=== PATIENT | male | born 1975 | race Caucasian/White ===

== ENCOUNTER → 2018-01-18 15:42 | Outpatient (CLI) | payer OTHER, SELFPAY ==
--- NOTE | 2018-01-18 15:43 | DI.RAD.S_ITS ---
PROCEDURE: XR KNEE LT 3V INDICATIONS: left patellar pain after trauma TECHNIQUE: 3 views of the knee were acquired. COMPARISON: None. FINDINGS: Bones: No fractures or dislocations. No suspicious bony lesions. Soft tissues: No joint effusion. No suspicious soft tissue calcifications. IMPRESSION: No fracture found, no joint effusion seen. Dictated by: Alfredo Koroma M.D. on 01/18/2018 at 16:16 Approved by: Alfredo Koroma M.D. on 01/18/2018 at 16:17
== END ==
PROVIDERS: PCP Family Medicine; Visit Provider Family Medicine
DX: M25.562 Pain in left knee (principal)
CPT/HCPCS: 73562

== ENCOUNTER → 2018-02-09 20:07 | Outpatient (CLI) | payer OTHER, SELFPAY ==
--- NOTE | 2018-02-09 20:09 | DI.MRI.S_ITS ---
PROCEDURE: MR KNEE RT WO CON INDICATIONS: INSTABILITY OF RT KNEE JOINT TECHNIQUE: Noncontrast sagittal PD fast spin echo and T2 fast spin echo with fat saturation, sagittal 3-D FLASH with fat saturation; coronal T1 spin echo and PD fast spin echo with fat saturation, and axial PD fast spin echo with fat saturation through the knee. COMPARISON: None. FINDINGS: Image quality: Excellent. Menisci: There is amorphous high signal intensity within the medial meniscal body and posterior horn, as well as a lateral meniscal body, without evidence of articular surface extension, indicating mucoid degeneration. No evidence of meniscal tear. Cruciate ligaments: The anterior and posterior cruciate ligaments appear intact. Medial structures: The medial collateral ligament appears intact. Visualized portions of the pes anserinus tendons appear normal. No abnormal bursal fluid. Lateral structures: The lateral collateral ligament, long and short heads of the biceps femoris tendon appear intact. The popliteus tendon appears normal. Iliotibial band appears normal. Anterior structures: The quadriceps and patellar tendons appear intact. Patellar alignment is normal. No femoral trochlear dysplasia or ventral trochlear prominence. No edema in the infrapatellar fat pad. Bones and cartilage: No displaced fracture. There is mild tricompartmental periarticular osteophyte formation. Moderate ill-defined T2 signal elevation within the medial tibial plateau is present, consistent with degenerative marrow edema versus contusion, if there is history of recent trauma. Mild diffuse articular cartilage loss overlies the weightbearing aspects of the medial femoral condyle and medial tibial plateau. Articular cartilage fibrillation overlies the mid and posterior weightbearing aspects of the lateral tibial plateau. Joint space: There is physiologic knee joint fluid. There is a small Pierre's cyst. Normal appearing synovial plicae are incidentally noted. IMPRESSION: 1. No internal derangement. 2. Mucoid degeneration of the medial and lateral menisci without evidence of tearing. 3. Medial and lateral compartment articular cartilage loss. 4. Marrow edema within the medial tibial plateau, which is consistent with degenerative marrow edema, or contusion, if there is a history of recent injury. 5. Small Pierre's cyst. Dictated by: Prisca Welch M.D. on 02/10/2018 at 9:08 Approved by: Prisca Welch M.D. on 02/10/2018 at 9:12
== END ==
PROVIDERS: PCP Family Medicine
DX: M25.561 Pain in right knee (principal); M71.21 Synovial cyst of popliteal space [Baker], right knee; M23.321 Other meniscus derangements, posterior horn of medial meniscus, right knee; M23.361 Other meniscus derangements, other lateral meniscus, right knee
CPT/HCPCS: 73721

== ENCOUNTER → 2018-02-16 19:11 | Outpatient (CLI) | payer OTHER, SELFPAY ==
--- NOTE | 2018-02-16 19:13 | DI.MRI.S_ITS ---
PROCEDURE: MR KNEE LT WO CON INDICATIONS: unstable LEFT knee due to injury TECHNIQUE: Noncontrast sagittal PD fast spin echo and T2 fast spin echo with fat saturation, sagittal 3-D FLASH with fat saturation; coronal T1 spin echo and PD fast spin echo with fat saturation, and axial PD fast spin echo with fat saturation through the knee. COMPARISON: None. FINDINGS: Image quality: Excellent. Menisci: The medial and lateral menisci demonstrate normal morphology and internal signal. Small oblique tear of the posterior root of the lateral meniscus (series 10, image 22; series 9, image 18). Cruciate ligaments: The anterior and posterior cruciate ligaments appear intact. Medial structures: The medial collateral ligament appears intact. The posterior oblique ligament, semimembranosus tendon insertions, oblique popliteal ligament, and meniscocapsular junction appear intact. Visualized portions of the pes anserinus tendons appear normal. No abnormal bursal fluid. Lateral structures: The lateral collateral ligament, long and short heads of the biceps femoris tendon appear intact. The popliteus tendon appears normal; the popliteofibular ligament appears intact. The posterosuperior and anteroinferior popliteomeniscal fascicles appear intact. The arcuate and fabellofibular ligaments appear intact, on either side of the lateral inferior geniculate artery. Iliotibial band appears normal. Anterior structures: The quadriceps and patellar tendons appear intact. Patellar alignment is normal. No femoral trochlear dysplasia or ventral trochlear prominence. No edema in the infrapatellar fat pad. Bones and cartilage: No bone marrow contusions or fractures. The cartilage of the medial lateral femorotibial compartments, as well as the patellofemoral compartment, appears normal in thickness. There is mild fissuring the patellar articular cartilage at the apex (series 7, image 10. Joint space: There is physiologic knee joint fluid. Moderate-sized popliteal cyst. Normal appearing synovial plicae are incidentally noted. IMPRESSION: 1. Small oblique tear of the posterior root of the lateral meniscus. 2. Mild fissuring of the patellar articular cartilage at the apex. 3. Moderate-sized popliteal cyst. Dictated by: Jenniffer Maurice MD, PhD on 02/16/2018 at 22:15 Approved by: Jenniffer Maurice MD, PhD on 02/16/2018 at 22:59
== END ==
PROVIDERS: PCP Family Medicine; Visit Provider Family Medicine
DX: M25.562 Pain in left knee (principal); M71.22 Synovial cyst of popliteal space [Baker], left knee; S83.282A Other tear of lateral meniscus, current injury, left knee, initial encounter
CPT/HCPCS: 73721

== ENCOUNTER → 2019-07-22 10:36 | Outpatient (CLI) | payer OTHER, SELFPAY ==
[2019-07-22 11:11] LABS: Influenza A - CEPHEID Flu A POSITIVE (NEGATIVE); Influenza B - CEPHEID Flu B NEGATIVE (NEGATIVE)
== END ==
PROVIDERS: PCP Student in an Organized Health Care Education/Training Program; Visit Provider Student in an Organized Health Care Education/Training Program
DX: R68.89 Other general symptoms and signs (principal)
CPT/HCPCS: 87502

== ENCOUNTER → 2020-08-08 16:54 | Outpatient (CLI) | payer OTHER, SELFPAY ==
[2020-08-08 17:10] LABS: Hematocrit 43.1 % (41-53); Hemoglobin 14.8 g/dL (13.5-17.5); Mean Corpuscular HGB Conc 34.4 % (30-36); Mean Corpuscular Hemoglobin 31.6 PG (26-34); Mean Corpuscular Volume 91.8 fL (80-100); Platelet Count 263 X10^3/uL (150-400); Red Blood Cell Count 4.69 X10^6/uL (4.5-5.9); Red Cell Distribution Width 12.5 % (11.6-14.8); White Blood Cell Count 8.5 X10^3/uL (4.5-11.0)
[2020-08-08 17:37] LABS: Erythrocyte Sedimentation Rate 5 MM/HR (0-15)
[2020-08-08 17:52] LABS: BUN Creatinine Ratio 25.3 (6-22); Blood Urea Nitrogen 22 mg/dL (9-20); Calcium 9.8 mg/dL (8.4-10.2); Carbon Dioxide 28 mmol/L (22-32); Chloride 102 mmol/L (98-107); Cholesterol 205 mg/dL (140-199); Estimated Glomerular Filt Rate > 60.0 mL/min (>60); Glucose 100 mg/dL (70-100); HDL Cholesterol 96 mg/dL (40-60); HEMOLYSIS < 15 (0-50); LDL Cholesterol Calculated 97 mg/dL (<100); Potassium 3.7 mmol/L (3.4-5.1); Sodium 139 mmol/L (137-145); Triglycerides 60 mg/dL (35-150)
[2020-08-08 18:11] LABS: C-Reactive Protein Quant < 0.5 mg/dL (<1.0)
[2020-08-08 18:17] LABS: TSH w/ Reflex to FT4 0.33 uIU/mL (0.47-4.68)
[2020-08-08 18:35] LABS: Vitamin B12 644 pg/mL (239-931)
[2020-08-08 19:10] LABS: Free T4, Direct Thyroxine 0.91 ng/dL (0.78-2.19)
== END ==
PROVIDERS: PCP Student in an Organized Health Care Education/Training Program; Referring Provider Student in an Organized Health Care Education/Training Program; Visit Provider Student in an Organized Health Care Education/Training Program
DX: G62.9 Polyneuropathy, unspecified (principal); Z79.1 Long term (current) use of non-steroidal anti-inflammatories (NSAID); G43.109 Migraine with aura, not intractable, without status migrainosus; Z13.220 Encounter for screening for lipoid disorders
CPT/HCPCS: 36415; 80048; 80061; 82607; 84439; 84443; 85027; 85651; 86140

== ENCOUNTER 2021-02-06 10:32 | Emergency (ER) | payer SELFPAY ==
[2021-02-06 10:36] VITALS: BP 139/85; PULSE 83; RESP 16; TEMP 37; O2SAT 98; BMI 28.7
--- NOTE | 2021-02-06 10:41 | DI.RAD.S_ITS ---
PROCEDURE: XR ANKLE RT MIN 3V INDICATIONS: tripped TECHNIQUE: 3 views of the ankle were acquired. COMPARISON: [facility], , XR ANKLE 3V RIGHT, 11/14/2005, 9:34. [facility], , ANKLE 3 VIEWS LEFT, 09/25/2016, 19:16. [facility], , ANKLE 3 VIEWS LEFT, 11/21/2013, 9:53. FINDINGS: Bones: Oblique fracture of the distal fibula above the syndesmosis. Irregularity and lucency at the medial malleolus. Lucency at the posterior malleolus. Mild displacement of the fracture fragments. Ankle mortise is normally aligned. No suspicious bony lesions. Soft tissues: Swelling at the malleoli. No tibiotalar joint effusion. Achilles tendon appears normal. IMPRESSION: Suspect trimalleolar fracture with mild displacement. Recommend CT of the ankle for further characterization. Dictated by: Nael Paulson M.D. on 02/06/2021 at 10:12 Approved by: Nael Paulson M.D. on 02/06/2021 at 10:19
--- NOTE | 2021-02-06 11:17 | ED.LOWEXIN ---
HPI - Extremity Injury (Lower) General Chief Complaint: Extremity Injury, Lower Stated Complaint: RT ANKLE PAIN POST FALL Time Seen by Provider: 02/06/21 11:10 Source: patient Mode of arrival: Ambulatory History of Present Illness HPI Narrative: Patient is a 45-year-old male here for evaluation of a right ankle injury. He states that approximately 0300 hours in the morning he tripped over his dogs blanket. He did twist his ankle. He states that he heard a pop since then. He was wearing boots at the time. He was able to take the boot off but has kept his sock on since then. Now has significant discomfort and swelling to his right ankle. No other injuries from the event. Has not tried anything for the symptoms prior to arrival. Related Data Previous Rx's Medication Instructions Recorded gabapentin 300 mg capsule 300 mg PO BEDTIME #90 cap 05/09/20 celecoxib 200 mg capsule 200 mg PO BID #60 cap 07/06/20 sumatriptan succinate 100 mg 100 mg PO .COMPLEX PRN #20 tab 07/09/20 tablet (Imitrex) tadalafil 2.5 mg tablet (Cialis) 2.5 mg PO DAILY #90 tab 01/18/21 dextroamphetamine-amphetamine 30 30 mg PO DAILY #30 tab 02/05/21 mg tablet (Adderall) dextroamphetamine-amphetamine ER 30 mg PO QAM #30 cap 02/05/21 30 mg 24hr capsule,extend release (Adderall XR) hydrocodone 7.5 mg-acetaminophen 1 tab PO BID PRN #60 tab 02/05/21 325 mg tablet hydrocodone 5 mg-acetaminophen 325 1 tab PO Q4-6H PRN #10 tab 02/06/21 mg tablet Allergies Allergy/AdvReac Type Severity Reaction Status Date / Time Penicillins Allergy Severe BREATHING Verified 01/02/21 13:13 DIFFICULTY Anesthetics - Amide Type - Allergy Unknown Verified 01/02/21 13:13 Select A [Anesthetics - Amide Type] Anesthetics - Suzette Type- Allergy Unknown Verified 01/02/21 13:13 Parabens [Anesthetics - Suzette Type] erythromycin base Allergy Unknown Verified 01/02/21 13:13 [From Erythrocin] Sulfa (Sulfonamide Allergy Unknown Verified 01/02/21 13:13 Antibiotics) tetracycline Allergy Unknown Verified 01/02/21 13:13 Review of Systems Constitutional Constitutional: Reports system reviewed and no additional complaints, except as documented Musculoskeletal Musculoskeletal: Reports system reviewed and no additional complaints, except as documented and Reports as per HPI Integumentary/Breasts Comments: Bruising and swelling to the right ankle Neurologic Neurologic: Reports system reviewed and no additional complaints, except as documented Hematologic/Lymphatic On Anticoagulants: No Patient History Medical History Acute appendicitis Ankle pain (2006) Anxiety (09/18/15) Bilateral neuropathy of upper extremities (Unknown) Chronic pain of left ankle (06/20/16) Chronic right shoulder pain (12/02/16) Degenerative arthritis of shoulder region Depression (2013) Diverticular disease (2012) Foraminal stenosis of cervical region (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) Fractures (1999) Incomplete tear of right rotator cuff (06/16/17) Instability of right knee joint Ischial bursitis of right side (06/20/16) Migraine with aura and without status migrainosus, not intractable (06/16/17) Migraines (2013) Paresthesia of upper extremity (09/18/15) Partial tear of right rotator cuff (Unknown) Substance abuse (2005) Uncomplicated opioid dependence (04/07/17) Vertigo (~2011) Surgical History (Updated 12/31/18 @ 08:24 by King Quintana MD) Status post appendectomy Status post knee surgery Family History Mother Age: 70 Diabetes mellitus Hypertension Sister Age: 49 History of breast cancer Social History Smoking Status: Former smoker Smoking Status: Former smoker Exam Initial Vital Signs Initial Vital Signs: Vital Signs Temperature 98.6 F 02/06/21 10:36 Pulse Rate 83 02/06/21 10:36 Respiratory Rate 16 02/06/21 10:36 Blood Pressure 139/85 02/06/21 10:36 Pulse Oximetry 98 02/06/21 10:36 Const General: cooperative and comfortable HENMT Head: normal to inspection and normocephalic Cardio Pulses: dorsalis pedis present on the right Skin Other: Bruising throughout the right ankle, no breaks in the skin, Neuro Sensory Exam: no sensory deficits noted Extrem Other: No proximal fibula tenderness. No knee tenderness. Does have swelling and discomfort around the right ankle with limited range of motion. His right foot is also swollen. Procedures Orthopedic Splinting/Casting Injury #1: Side: right Lower Extremity Injury Location: ankle Lower Extremity Immobilizer: posterior splint and stirrup splint Other Orthopedic Equipment: crutches Post splinting neuro exam: intact Post splinting vascular exam: intact Placed by: Nursing Course Orders Ordered: ED Orders 02/06/21 10:41 XR ankle RT min 3V Stat Discontinued Medications Hydromorphone HCl (Hydromorphone 1 Mg Inj) 1 mg IV NOW ONE Stop: 02/06/21 11:18 Last Admin: 02/06/21 12:15 Dose: Not Given Documented by: PASCUAL Hydromorphone HCl (Hydromorphone 1 Mg Inj) 1 mg IM NOW ONE Stop: 02/06/21 11:20 Last Admin: 02/06/21 11:23 Dose: 1 mg Documented by: ALESSIO Vital Signs Vital signs: Vital Signs - 8 hr 02/06/21 10:36 Temperature 98.6 F Pulse Rate 83 Respiratory Rate 16 Blood Pressure 139/85 Pulse Oximetry 98 MDM - Extremity Injury (Lower) Imaging Data Extremity x-ray #1: Radiologist's Impression: [address] [address] XRay Report Signed Patient: Hector Gu MR#: [id number] : 1975 Acct:[id number] Age/Sex: 45 / M Date of Service: 02/06/21 Loc: ED Accession Number: [id number] ?? Procedure: XR ankle RT min 3V Ordering Provider: Matthew Thakur D.O. PROCEDURE:? XR ANKLE RT MIN 3V ? INDICATIONS:? tripped ? TECHNIQUE:? 3 views of the ankle were acquired.? ? COMPARISON:? [facility], , XR ANKLE 3V RIGHT, 11/14/2005, 9:34.? [facility], , ANKLE 3 VIEWS LEFT, 09/25/2016, 19:16.? [facility], , ANKLE 3 VIEWS LEFT, 11/21/2013, 9:53. ? FINDINGS:? ? Bones:? Oblique fracture of the distal fibula above the syndesmosis.? Irregularity and lucency at the medial malleolus.? Lucency at the posterior malleolus.? Mild displacement of the fracture fragments.? Ankle mortise is normally aligned.? No suspicious bony lesions.? ? Soft tissues:? Swelling at the malleoli. No tibiotalar joint effusion.? Achilles tendon appears normal.? ? ? IMPRESSION:? Suspect trimalleolar fracture with mild displacement. ? Recommend CT of the ankle for further characterization. ? ? ? Dictated by: Nael Paulson M.D. on 02/06/2021 at 10:12 ? ? Approved by: Nael Paulson M.D. on 02/06/2021 at 10:19?? MDM Narrative Medical decision making narrative: Patient is neurovascularly intact. X-rays concerning for trimalleolar fracture. Is minimally displaced. Splint was placed here in the emergency department. He is having quite a bit of swelling. He was given follow-up instructions with orthopedics and care instructions. He expressed understanding and agreement. Discharge Plan Departure Patient Disposition: Home Clinical Impression: Ankle fracture, right Instructions: How to Use Crutches, DI for Ankle Fracture, How to Take Care of Your Splint Activity Restrictions/Additional Instructions: Your x-ray today does show a right-sided ankle fracture. This most likely is going to require surgery. I recommend you contact the orthopedic group at the number provided below. The splint that was placed today does need to be treated like a cast. You need to keep it on and keep it clean and keep it dry. Contact your primary doctor for a follow-up. Prescriptions: New hydrocodone-acetaminophen 5-325 mg tablet 1 tab PO Q4-6H PRN (Reason: pain) Qty: 10 RF: 0 No Action celecoxib 200 mg capsule 200 mg PO BID Qty: 60 RF: 4 sumatriptan succinate [Imitrex] 100 mg tablet 100 mg PO .COMPLEX PRN (Reason: migraine headache, MRx1 in 2 hours as needed.) Qty: 20 RF: 3 tadalafil [Cialis] 2.5 mg tablet 2.5 mg PO DAILY Qty: 90 RF: 0 dextroamphetamine-amphetamine [Adderall] 30 mg tablet 30 mg PO DAILY Qty: 30 RF: 0 dextroamphetamine-amphetamine [Adderall XR] 30 mg capsule,extended release 24hr 30 mg PO QAM Qty: 30 RF: 0 hydrocodone-acetaminophen 7.5-325 mg tablet 1 tab PO BID PRN (Reason: pain) Qty: 60 RF: 0 gabapentin 300 mg capsule 300 mg PO BEDTIME Qty: 90 RF: 3 Referrals: King Quintana MD [Primary Care Provider] -
[2021-02-06] MEDS: HYDROMORPHONE 1 MG INJ IM (11:23)
[2021-02-06 12:33] VITALS: BP 138/89; PULSE 83; RESP 16; O2SAT 99
== END 2021-02-06 12:33 | disposition home or self-care (01) ==
PROVIDERS: Emergency Provider Emergency Medicine; PCP Student in an Organized Health Care Education/Training Program
DX: S82.851A Displaced trimalleolar fracture of right lower leg, initial encounter for closed fracture (principal); W01.0XXA Fall on same level from slipping, tripping and stumbling without subsequent striking against object, initial encounter
CPT/HCPCS: 29515; 73610; 96372; 99283; 99284; J1170

== ENCOUNTER 2021-02-12 10:34 | Emergency (ER) | payer SELFPAY ==
[2021-02-12 10:45] VITALS: BP 141/75; PULSE 89; RESP 15; TEMP 36.7; O2SAT 97; BMI 28.1
--- NOTE | 2021-02-12 10:47 | ED.GENADULT ---
HPI - General Adult General Chief complaint: Extremity Injury, Lower Stated complaint: RT ANKLE PAIN Time Seen by Provider: 02/12/21 10:40 Source: patient Mode of arrival: Wheelchair History of Present Illness HPI narrative: Patient is a 45-year-old male. I evaluated him here in the emergency department a couple days ago for a right ankle fracture. He was placed in a splint. Was given pain medication. Was given follow-up with Orthopedics. States that he went home. Started to have some extreme discomfort in his ankle. Went to an outside facility. The splint that was placed here in this department was removed. Apparently was found that he had fracture blisters. Was given antibiotics. Was given a prescription for antibiotics but has not picked up that prescription. Had a follow-up with Orthopedics today that was already scheduled. Was discovered that he had very foul smelling discharge and redness in continued pain. Was sent to the emergency department for labs and further evaluation. Related Data Previous Rx's Medication Instructions Recorded gabapentin 300 mg capsule 300 mg PO BEDTIME #90 cap 05/09/20 celecoxib 200 mg capsule 200 mg PO BID #60 cap 07/06/20 sumatriptan succinate 100 mg 100 mg PO .COMPLEX PRN #20 tab 07/09/20 tablet (Imitrex) tadalafil 2.5 mg tablet (Cialis) 2.5 mg PO DAILY #90 tab 01/18/21 dextroamphetamine-amphetamine 30 30 mg PO DAILY #30 tab 02/05/21 mg tablet (Adderall) dextroamphetamine-amphetamine ER 30 mg PO QAM #30 cap 02/05/21 30 mg 24hr capsule,extend release (Adderall XR) hydrocodone 7.5 mg-acetaminophen 1 tab PO BID PRN #60 tab 02/05/21 325 mg tablet hydrocodone 5 mg-acetaminophen 325 1 tab PO Q4-6H PRN #10 tab 02/06/21 mg tablet cephalexin 500 mg capsule 500 mg PO QID 7 Days #28 cap 02/12/21 Allergies Allergy/AdvReac Type Severity Reaction Status Date / Time Penicillins Allergy Severe BREATHING Verified 02/12/21 10:45 DIFFICULTY Anesthetics - Amide Type - Allergy Unknown Verified 02/12/21 10:45 Select A [Anesthetics - Amide Type] Anesthetics - Suzette Type- Allergy Unknown Verified 02/12/21 10:45 Parabens [Anesthetics - Suzette Type] erythromycin base Allergy Unknown Verified 02/12/21 10:45 [From Erythrocin] Sulfa (Sulfonamide Allergy Unknown Verified 02/12/21 10:45 Antibiotics) tetracycline Allergy Unknown Verified 02/12/21 10:45 Review of Systems Constitutional Constitutional: Denies fever(s) Cardiovascular Cardiovascular: Reports system reviewed and no additional complaints, except as documented Respiratory Respiratory: Reports system reviewed and no additional complaints, except as documented Musculoskeletal Musculoskeletal: Reports system reviewed and no additional complaints, except as documented and Reports as per HPI Integumentary/Breasts Skin/Breast: Reports system reviewed and no additional complaints, except as documented Neurologic Neurologic: Reports system reviewed and no additional complaints, except as documented Hematologic/Lymphatic On Anticoagulants: No Patient History Medical History Acute appendicitis Ankle pain (2006) Anxiety (09/18/15) Bilateral neuropathy of upper extremities (Unknown) Chronic pain of left ankle (06/20/16) Chronic right shoulder pain (12/02/16) Degenerative arthritis of shoulder region Depression (2013) Diverticular disease (2012) Foraminal stenosis of cervical region (08/21/17) Fractures (1999) Incomplete tear of right rotator cuff (06/16/17) Instability of right knee joint Ischial bursitis of right side (06/20/16) Migraine with aura and without status migrainosus, not intractable (06/16/17) Migraines (2013) Paresthesia of upper extremity (09/18/15) Partial tear of right rotator cuff (Unknown) Substance abuse (2005) Uncomplicated opioid dependence (04/07/17) Vertigo (~2011) Surgical History (Updated 12/31/18 @ 08:24 by King Quintana MD) Status post appendectomy Status post knee surgery Family History Mother Age: 70 Diabetes mellitus Hypertension Sister Age: 49 History of breast cancer Social History Smoking Status: Former smoker Smoking Status: Former smoker Exam Initial Vital Signs Initial Vital Signs: Vital Signs Temperature 98.0 F 02/12/21 10:45 Pulse Rate 89 02/12/21 10:45 Respiratory Rate 15 02/12/21 10:45 Blood Pressure 141/75 H 02/12/21 10:45 Pulse Oximetry 97 02/12/21 10:45 Const General: cooperative and comfortable HENMT Head: normal to inspection and normocephalic Resp Effort & Inspection: normal respiratory effort Cardio Rate: regular rate Skin Other: Patient with large fracture blisters on both the medial and lateral aspect of his right foot. Foul smelling. Red and beefy appearing. Neuro General: patient alert and patient awake Extrem Other: Patient's right foot is swollen. Fracture blisters apparent. Ecchymosis around the area. Psych Appearance: grossly normal and well kempt Procedures Orthopedic Splinting/Casting Injury #1: Side: right Lower Extremity Injury Location: ankle Lower Extremity Immobilizer: posterior splint and stirrup splint Other Orthopedic Equipment: crutches Post splinting neuro exam: intact Post splinting vascular exam: intact Placed by: Provider Course Orders Ordered: Discontinued Medications Hydrocodone Bitart/Acetaminophen (Hydrocodone/Acet 5/325 Tablet) 1 tab PO NOW ONE Stop: 02/12/21 13:21 Last Admin: 02/12/21 13:33 Dose: 1 tab Documented by: SIDNEY Hydromorphone HCl (Hydromorphone 1 Mg Inj) 1 mg IV NOW ONE Stop: 02/12/21 12:10 Last Admin: 02/12/21 12:30 Dose: 1 mg Documented by: SIDNEY Vital Signs Vital signs: Vital Signs - 8 hr 02/12/21 10:45 02/12/21 14:00 Temperature 98.0 F Pulse Rate 89 74 Respiratory Rate 15 18 Blood Pressure 141/75 H 134/88 Pulse Oximetry 97 100 Medical Decision Making Medical Records Medical records reviewed: Yes I reviewed the patient's medical records. Lab Data Lab results reviewed: Yes I reviewed the patient's lab results. Result diagrams: 02/12/21 10:52 02/12/21 10:52 Labs: Lab Results 02/12/21 02/12/21 02/12/21 Range/Units 10:52 10:52 10:52 WBC 6.8 (4.5-11.0) X10^3/uL RBC 3.97 L (4.5-5.9) X10^6/uL Hgb 12.2 L (13.5-17.5) g/dL Hct 35.9 L (41-53) % MCV 90.6 (80-100) fL MCH 30.7 (26-34) PG MCHC 33.8 (30-36) % RDW 12.5 (11.6-14.8) % Plt Count 267 (150-400) X10^3/uL Neut % (Auto) 62.8 (50-75) % Lymph % (Auto) 22.4 L (25-40) % [place] % (Auto) 9.9 (3-14) % Eos % (Auto) 4.3 H (2-4) % Baso % (Auto) 0.6 (0-2) % Neut # (Auto) 4300 (2455-1914) /uL Lymph # (Auto) 1500 (8909-9393) /uL [place] # (Auto) 700 (0-900) /uL Eos # (Auto) 300 (0-450) /uL Baso # (Auto) 0 (0-100) /uL ESR 38 H (0-15) MM/HR Sodium 141 (137-145) mmol/L Potassium 3.7 (3.4-5.1) mmol/L Chloride 107 (98-107) mmol/L Carbon Dioxide 30 (22-32) mmol/L BUN 18 (9-20) mg/dL Creatinine 0.62 L (0.66-1.25) mg/dL Estimated GFR > 60.0 (>60) mL/min BUN/Creatinine Ratio 29.0 H (6-22) Glucose 130 H (70-100) mg/dL Lactate 1.2 (0.7-2.1) mmol/L Calcium 9.1 (8.4-10.2) mg/dL C-Reactive Protein 5.0 H (<1.0) mg/dL Imaging Data Extremity x-ray #1: Radiologist's Impression: [address] [id number] ReportSigned Patient: Hector Gu LMR#: [id number]: [id number]:[id number]/Sex: 45 / MDate of Service: 02/12/21Loc: EDAccession Number: [id number] Procedure: XR ankle RT min 3V Ordering Provider: Matthew Thakur D.O. PROCEDURE: XR ANKLE RT MIN 3V INDICATIONS: known fx requested by ortho TECHNIQUE: 3 views of the ankle were acquired. COMPARISON: [facility], CR, XR ANKLE RT MIN 3V, 02/06/2021, 10:43. FINDINGS: Bones: There is a comminuted fracture seen involving the medial malleolus, with adjacent periosteal reaction. There is a mildly displaced distal fibular fracture seen at and below the level of the syndesmosis. The syndesmosis appears mildly widened. There is widening of the ankle mortise. The talar dome demonstrates no val abnormality. There is a mildly displaced posterior malleolar fracture also seen. Incidental note is made of an accessory ossicle, an os trigonum. Age-appropriate bony degenerative changes are seen. Soft tissues: Generalized soft tissue swelling is seen. IMPRESSION: Trimalleolar fracture again seen. If clinically appropriate, a dedicated ankle CT could be considered for further evaluation. Dictated by: Jeffrey Degroot M.D. on 02/12/2021 at 10:07 Approved by: Jeffrey Degroot M.D. on 02/12/2021 at 10:09 [facility] Narrative Medical decision making narrative: Patient is neurologically intact. Cultures were obtained today. He does have significant fracture blisters and swelling. Did ESR and CRP. I did discuss the case with Dr. mi who requested the patient come to the emergency department. He was placed in a large bulky [place] splint. He was given another pair of crutches. Was given a prescription for antibiotics since he has not picked up his antibiotics from the prior pharmacy does not know what he was given. He was instructed to contact the Orthopedic Department for a follow-up. Was also given other care instructions. He expressed understanding and agreement. Discharge Plan Departure Patient Disposition: Home Clinical Impression: Fracture of right ankle Instructions: How to Take Care of Your Splint Activity Restrictions/Additional Instructions: The splint that is placed today does need to stay on and stay clean and stay dry. You need to keep your ankle elevated as much as possible. Do not walk on your ankle. Use the crutches. We were unable to get in touch with [facility] pharmacy to see what antibiotic you were placed on a couple days ago. I am writing you a prescription for antibiotics. Take them as directed. Contact the orthopedic office for a follow-up. Return to the emergency department for any new or worsening symptoms Prescriptions: New cephalexin 500 mg capsule 500 mg PO QID 7 Days Qty: 28 RF: 0 No Action celecoxib 200 mg capsule 200 mg PO BID Qty: 60 RF: 4 sumatriptan succinate [Imitrex] 100 mg tablet 100 mg PO .COMPLEX PRN (Reason: migraine headache, MRx1 in 2 hours as needed.) Qty: 20 RF: 3 tadalafil [Cialis] 2.5 mg tablet 2.5 mg PO DAILY Qty: 90 RF: 0 dextroamphetamine-amphetamine [Adderall] 30 mg tablet 30 mg PO DAILY Qty: 30 RF: 0 dextroamphetamine-amphetamine [Adderall XR] 30 mg capsule,extended release 24hr 30 mg PO QAM Qty: 30 RF: 0 hydrocodone-acetaminophen 7.5-325 mg tablet 1 tab PO BID PRN (Reason: pain) Qty: 60 RF: 0 gabapentin 300 mg capsule 300 mg PO BEDTIME Qty: 90 RF: 3 hydrocodone-acetaminophen 5-325 mg tablet 1 tab PO Q4-6H PRN (Reason: pain) Qty: 10 RF: 0 Referrals: King Quintana MD [Primary Care Provider] -
[2021-02-12 11:07] LABS: Add Manual Diff / Slide Review NO; Basophils Absolute Auto 0 /uL (0-100); Basophils Percent Auto 0.6 % (0-2); Eosinophils Absolute Auto 300 /uL (0-450); Eosinophils Percent Auto 4.3 % (2-4); Hematocrit 35.9 % (41-53); Hemoglobin 12.2 g/dL (13.5-17.5); Lymphocytes Absolute Auto 1500 /uL (1100-4500); Lymphocytes Percent Auto 22.4 % (25-40); Mean Corpuscular HGB Conc 33.8 % (30-36); Mean Corpuscular Hemoglobin 30.7 PG (26-34); Mean Corpuscular Volume 90.6 fL (80-100); Monocytes Absolute Auto 700 /uL (0-900); Monocytes Percent Auto 9.9 % (3-14); Neutrophils Absolute Auto 4300 /uL (1500-7000); Neutrophils Percent Auto 62.8 % (50-75); Platelet Count 267 X10^3/uL (150-400); Red Blood Cell Count 3.97 X10^6/uL (4.5-5.9); Red Cell Distribution Width 12.5 % (11.6-14.8); White Blood Cell Count 6.8 X10^3/uL (4.5-11.0)
--- NOTE | 2021-02-12 11:08 | PC.NURSE ---
Patient returns to the ED, presents with an ortho boot on right foot/leg that was soaking wet, bandage intact and foul smelling wound on right ankle/lower leg. Upon removal of the boot and bandage the skin appears red, swollen and moist. Wound sample sent to the lab, blood cultures drawn/sent to lab. Patient reports a large blister was present a couple days ago, as well as two blisters on the lateral aspect of the right ankle, pt was seen at [facility] on Thursday for pain. Received one dose of antibiotics at ED but was unable to fill his script for unknown reasons.
[2021-02-12 11:15] LABS: Lactate (Lactic Acid) 1.2 mmol/L (0.7-2.1)
[2021-02-12 11:18] LABS: Blood Urea Nitrogen 18 mg/dL (9-20); Calcium 9.1 mg/dL (8.4-10.2); Carbon Dioxide 30 mmol/L (22-32); Chloride 107 mmol/L (98-107); Estimated Glomerular Filt Rate > 60.0 mL/min (>60); Glucose 130 mg/dL (70-100); HEMOLYSIS < 15 (0-50); Potassium 3.7 mmol/L (3.4-5.1); Sodium 141 mmol/L (137-145)
[2021-02-12 11:30] LABS: Erythrocyte Sedimentation Rate 38 MM/HR (0-15)
[2021-02-12] MEDS: HYDROMORPHONE 1 MG INJ IV (12:30)
[2021-02-12] MEDS: HYDROCODONE/ACET 5/325 TABLET 1 TAB PO (13:33)
[2021-02-12 14:00] VITALS: BP 134/88; PULSE 74; RESP 18; O2SAT 100
== END 2021-02-12 14:35 | disposition home or self-care (01) ==
PROVIDERS: Emergency Provider Emergency Medicine; PCP Student in an Organized Health Care Education/Training Program
DX: S82.891G Other fracture of right lower leg, subsequent encounter for closed fracture with delayed healing (principal)
CPT/HCPCS: 29505; 36415; 73610; 80048; 83605; 85025; 85651; 86140; 87070; 87077; 87186; 87205; 96374; 99284; J1170

== ENCOUNTER 2021-02-16 06:17 | Emergency (ER) | payer SELFPAY ==
--- NOTE | 2021-02-16 06:37 | ED.GENADULT ---
HPI - General Adult General Stated complaint: states open wound right ankle Time Seen by Provider: 02/16/21 06:24 Related Data Previous Rx's Medication Instructions Recorded gabapentin 300 mg capsule 300 mg PO BEDTIME #90 cap 05/09/20 celecoxib 200 mg capsule 200 mg PO BID #60 cap 07/06/20 sumatriptan succinate 100 mg 100 mg PO .COMPLEX PRN #20 tab 07/09/20 tablet (Imitrex) tadalafil 2.5 mg tablet (Cialis) 2.5 mg PO DAILY #90 tab 01/18/21 dextroamphetamine-amphetamine 30 30 mg PO DAILY #30 tab 02/05/21 mg tablet (Adderall) dextroamphetamine-amphetamine ER 30 mg PO QAM #30 cap 02/05/21 30 mg 24hr capsule,extend release (Adderall XR) hydrocodone 7.5 mg-acetaminophen 1 tab PO BID PRN #60 tab 02/05/21 325 mg tablet hydrocodone 5 mg-acetaminophen 325 1 tab PO Q4-6H PRN #10 tab 02/06/21 mg tablet cephalexin 500 mg capsule 500 mg PO QID 7 Days #28 cap 02/12/21 Allergies Allergy/AdvReac Type Severity Reaction Status Date / Time Penicillins Allergy Severe BREATHING Verified 02/12/21 10:45 DIFFICULTY Anesthetics - Amide Type - Allergy Unknown Verified 02/12/21 10:45 Select A [Anesthetics - Amide Type] Anesthetics - Suzette Type- Allergy Unknown Verified 02/12/21 10:45 Parabens [Anesthetics - Suzette Type] erythromycin base Allergy Unknown Verified 02/12/21 10:45 [From Erythrocin] Sulfa (Sulfonamide Allergy Unknown Verified 02/12/21 10:45 Antibiotics) tetracycline Allergy Unknown Verified 02/12/21 10:45 Patient History Medical History Acute appendicitis Ankle pain (2006) Anxiety (09/18/15) Bilateral neuropathy of upper extremities (Unknown) Chronic pain of left ankle (06/20/16) Chronic right shoulder pain (12/02/16) Degenerative arthritis of shoulder region Depression (2013) Diverticular disease (2012) Foraminal stenosis of cervical region (08/21/17) Fractures (1999) Incomplete tear of right rotator cuff (06/16/17) Instability of right knee joint Ischial bursitis of right side (06/20/16) Migraine with aura and without status migrainosus, not intractable (06/16/17) Migraines (2013) Paresthesia of upper extremity (09/18/15) Partial tear of right rotator cuff (Unknown) Substance abuse (2005) Uncomplicated opioid dependence (04/07/17) Vertigo (~2011) Surgical History (Updated 12/31/18 @ 08:24 by King Quintana MD) Status post appendectomy Status post knee surgery Family History Mother Age: 70 Diabetes mellitus Hypertension Sister Age: 49 History of breast cancer Social History Smoking Status: Former smoker Smoking Status: Former smoker alcohol intake frequency: holidays/special occasions only Substance Use Type: does not use Discharge Plan Departure Prescriptions: No Action celecoxib 200 mg capsule 200 mg PO BID Qty: 60 RF: 4 sumatriptan succinate [Imitrex] 100 mg tablet 100 mg PO .COMPLEX PRN (Reason: migraine headache, MRx1 in 2 hours as needed.) Qty: 20 RF: 3 tadalafil [Cialis] 2.5 mg tablet 2.5 mg PO DAILY Qty: 90 RF: 0 dextroamphetamine-amphetamine [Adderall] 30 mg tablet 30 mg PO DAILY Qty: 30 RF: 0 dextroamphetamine-amphetamine [Adderall XR] 30 mg capsule,extended release 24hr 30 mg PO QAM Qty: 30 RF: 0 hydrocodone-acetaminophen 7.5-325 mg tablet 1 tab PO BID PRN (Reason: pain) Qty: 60 RF: 0 gabapentin 300 mg capsule 300 mg PO BEDTIME Qty: 90 RF: 3 cephalexin 500 mg capsule 500 mg PO QID 7 Days Qty: 28 RF: 0 hydrocodone-acetaminophen 5-325 mg tablet 1 tab PO Q4-6H PRN (Reason: pain) Qty: 10 RF: 0 Referrals: King Quintana MD [Primary Care Provider] -
[2021-02-16 06:42] VITALS: BP 131/89; PULSE 89; RESP 20; TEMP 36.1
--- NOTE | 2021-02-16 07:04 | ED.LOWEXIN ---
HPI - Extremity Injury (Lower) General Chief Complaint: Extremity Injury, Lower Stated Complaint: states open wound right ankle Time Seen by Provider: 02/16/21 06:24 Source: patient Mode of arrival: Wheelchair Limitations: no limitations History of Present Illness HPI Narrative: Patient is a 45-year-old healthy male presents with foul smell and drainage from right ankle and cast. He has trimalleolar fracture diagnosed on 02/06/2021 when he tripped over his dog blanket. He was then seen evaluated at [facility] a few days later where he was found to have fracture blisters he was started on doxycycline. He was then seen again at this facility 02/12/2021 for continued foul smelling drainage and pain. At that visit he had blood work repeat x-ray discussion with Orthopedics. He was started on cephalexin at that time. Today he is presenting with again drainage and foul smelling from splint. He denies any fever or chills. He has no history of diabetes. He has no numbness tingling or weakness. Related Data Previous Rx's Medication Instructions Recorded gabapentin 300 mg capsule 300 mg PO BEDTIME #90 cap 05/09/20 celecoxib 200 mg capsule 200 mg PO BID #60 cap 07/06/20 sumatriptan succinate 100 mg 100 mg PO .COMPLEX PRN #20 tab 07/09/20 tablet (Imitrex) tadalafil 2.5 mg tablet (Cialis) 2.5 mg PO DAILY #90 tab 01/18/21 dextroamphetamine-amphetamine 30 30 mg PO DAILY #30 tab 02/05/21 mg tablet (Adderall) dextroamphetamine-amphetamine ER 30 mg PO QAM #30 cap 02/05/21 30 mg 24hr capsule,extend release (Adderall XR) hydrocodone 7.5 mg-acetaminophen 1 tab PO BID PRN #60 tab 02/05/21 325 mg tablet hydrocodone 5 mg-acetaminophen 325 1 tab PO Q4-6H PRN #10 tab 02/06/21 mg tablet cephalexin 500 mg capsule 500 mg PO QID 7 Days #28 cap 02/12/21 ciprofloxacin HCl 500 mg tablet 500 mg PO BID #20 tab 02/16/21 (Cipro) oxycodone-acetaminophen 5 mg-325 1 tab PO Q6H PRN #14 tab 02/16/21 mg tablet (Percocet) Allergies Allergy/AdvReac Type Severity Reaction Status Date / Time Penicillins Allergy Severe BREATHING Verified 02/12/21 10:45 DIFFICULTY Anesthetics - Amide Type - Allergy Unknown Verified 02/12/21 10:45 Select A [Anesthetics - Amide Type] Anesthetics - Suzette Type- Allergy Unknown Verified 02/12/21 10:45 Parabens [Anesthetics - Suzette Type] erythromycin base Allergy Unknown Verified 02/12/21 10:45 [From Erythrocin] Sulfa (Sulfonamide Allergy Unknown Verified 02/12/21 10:45 Antibiotics) tetracycline Allergy Unknown Verified 02/12/21 10:45 Review of Systems Review of Systems Narrative: GENERAL: Denies chills,fever HEENT: Denies throat pain RESPIRATORY: Denies dyspnea, cough, wheezing CARDIOVASCULAR: Denies chest pain, palpitations GASTROINTESTINAL: Denies nausea, vomiting MUSCULOSKELETAL: Denies extremity pain, injury SKIN: See HPI NEUROLOGIC: Denies weakness, dizziness, headache, numbness 8 point review of systems is negative except for those stated above and HPI Patient History Medical History Acute appendicitis Ankle pain (2006) Anxiety (09/18/15) Bilateral neuropathy of upper extremities (Unknown) Chronic pain of left ankle (06/20/16) Chronic right shoulder pain (12/02/16) Degenerative arthritis of shoulder region Depression (2013) Diverticular disease (2012) Foraminal stenosis of cervical region (08/21/17) Fractures (1999) Incomplete tear of right rotator cuff (06/16/17) Instability of right knee joint Ischial bursitis of right side (06/20/16) Migraine with aura and without status migrainosus, not intractable (06/16/17) Migraines (2013) Paresthesia of upper extremity (09/18/15) Partial tear of right rotator cuff (Unknown) Substance abuse (2005) Uncomplicated opioid dependence (04/07/17) Vertigo (~2011) Surgical History (Updated 12/31/18 @ 08:24 by King Quintana MD) Status post appendectomy Status post knee surgery Family History Mother Age: 70 Diabetes mellitus Hypertension Sister Age: 49 History of breast cancer Social History Smoking Status: Former smoker Smoking Status: Former smoker alcohol intake frequency: holidays/special occasions only Substance Use Type: does not use Exam Initial Vital Signs Initial Vital Signs: Vital Signs Temperature 96.9 F L 02/16/21 06:42 Pulse Rate 89 02/16/21 06:42 Respiratory Rate 20 02/16/21 06:42 Blood Pressure 131/89 02/16/21 06:42 GENERAL: Well-appearing, well-nourished and in no acute distress. CARDIOVASCULAR: peripheral pulses in tact, cap refill <2 sec RESPIRATORY: No respiratory distress, speaks in full sentences without difficulty [ABDOMEN: Soft, nontender, no guarding or rebound] EXTREMITIES: Normal range of motion, no clubbing or edema. Neurovascularly intact NEUROLOGICAL: Cranial nerves II through XII grossly intact. Normal gait and speech. SKIN: Warm, dry, no petechiae, no rashes or lesions. Procedures Orthopedic Splinting/Casting Injury #1: Lower Extremity Injury Location: ankle Lower Extremity Immobilizer: posterior splint and stirrup splint Post splinting neuro exam: intact and no change Post splinting vascular exam: no change Course Orders Ordered: Discontinued Medications Ketorolac Tromethamine (Ketorolac 30 Mg/Ml Vial) 30 mg IM NOW ONE Stop: 02/16/21 07:09 Last Admin: 02/16/21 07:32 Dose: 30 mg Documented by: IRENE Oxycodone/Acetaminophen (Oxycodone/Acetaminophen 5/325 Tablet) 2 tab PO NOW ONE Stop: 02/16/21 07:09 Last Admin: 02/16/21 07:31 Dose: 2 tab Documented by: IRENE Vital Signs Vital signs: Vital Signs - 8 hr 02/16/21 08:50 Pulse Rate 72 Respiratory Rate 18 Blood Pressure [Right Arm] 134/79 Pulse Oximetry 97 MDM - Extremity Injury (Lower) MDM Narrative Medical decision making narrative: Patient is afebrile foot is more on the wet side. He has previously been on doxycycline and cephalexin. Cultures have been reviewed he apparently needs to be on floor quinolone. He has multiple bacteria growing. He overall does not look septic. He previously had blood work done. He actually looks well and is afebrile. Allevyn dressings were placed over macerated skin. [address] [facility] [facility] has been updated patient's symptoms in recent history. At this time recommends drying foot out Respinting it and changing to an appropriate antibiotic. I did recommend wound care to Orthopedics. He has an appointment in 3 days with Orthopedics will follow-up then. Discharge Plan Departure Patient Disposition: Home Clinical Impression: Ankle fracture, right Qualifiers: Encounter type: subsequent encounter Fracture type: closed Instructions: DI for Cellulitis -- Adult Activity Restrictions/Additional Instructions: *You have been diagnosed with right ankle fracture with cellulitis *What to do: At this time unfortunately I think her splint will need to be changed again. You also need to see wound care. Orthopedics is working on scheduling you for surgery. It is EXTREMELY IMPORTANT that you KEEP YOUR LEG ELEVATED OFTEN POSSIBLE May ice 20-30 minutes through this splint *Continue to take medications as directed-->SENT TO [facility] IN [place] Stop taking cephalexin Stop taking doxycycline Start taking Cipro 500 mg twice a day for 10 days Percocet 1 tablet every 6 hours if needed for severe pain *Follow up with your primary care provider in 2-3 days *Return to ER if you should have increasing drainage, pain fever, redness or any new, worsening or concerning symptoms CONTROLLED SUBSTANCE DISCHARGE (Narcotoic/benzodiazepine/Flexeril/Phenergan) 1. You have been prescribed narcotic medications, it does have acetaminophen/Tylenol/paracetamol in it, DO NOT TAKE MORE THAN 4,00mg in 24 hours of Tylenol. TRAMADOL DOES NOT CONTAIN TYLENOL 2. Please understand that we cannot provide further refills of narcotics, benzodiazepines or controlled substances through the ED and her pain management will need to be through your provider. 3. While on these medications you cannot drive or operate heavy machinery. 4. You cannot sign legal documents or perform any duties such as this. 5. As long as you're taking opiate pain medications he should also be taking a stool softener such as Colace, Dulcolax, MiraLAX or prune juice, to help avoid constipation. Prescriptions: New ciprofloxacin HCl [Cipro] 500 mg tablet 500 mg PO BID Qty: 20 RF: 0 oxycodone-acetaminophen [Percocet] 5-325 mg tablet 1 tab PO Q6H PRN (Reason: pain) Qty: 14 RF: 0 No Action celecoxib 200 mg capsule 200 mg PO BID Qty: 60 RF: 4 sumatriptan succinate [Imitrex] 100 mg tablet 100 mg PO .COMPLEX PRN (Reason: migraine headache, MRx1 in 2 hours as needed.) Qty: 20 RF: 3 tadalafil [Cialis] 2.5 mg tablet 2.5 mg PO DAILY Qty: 90 RF: 0 dextroamphetamine-amphetamine [Adderall] 30 mg tablet 30 mg PO DAILY Qty: 30 RF: 0 dextroamphetamine-amphetamine [Adderall XR] 30 mg capsule,extended release 24hr 30 mg PO QAM Qty: 30 RF: 0 hydrocodone-acetaminophen 7.5-325 mg tablet 1 tab PO BID PRN (Reason: pain) Qty: 60 RF: 0 gabapentin 300 mg capsule 300 mg PO BEDTIME Qty: 90 RF: 3 cephalexin 500 mg capsule 500 mg PO QID 7 Days Qty: 28 RF: 0 hydrocodone-acetaminophen 5-325 mg tablet 1 tab PO Q4-6H PRN (Reason: pain) Qty: 10 RF: 0 Referrals: King Quintana MD [Primary Care Provider] - Jv Trinidad MD [Physician] -
[2021-02-16] MEDS: OXYCODONE/ACETAMINOPHEN 5/325 TABLET 2 TAB PO (07:31)
[2021-02-16] MEDS: KETOROLAC 30 MG/ML VIAL IM (07:32)
[2021-02-16 08:50] VITALS: BP 134/79; PULSE 72; RESP 18; O2SAT 97
== END 2021-02-16 08:52 | disposition home or self-care (01) ==
PROVIDERS: Emergency Provider Emergency Medicine; PCP Student in an Organized Health Care Education/Training Program
DX: S82.891G Other fracture of right lower leg, subsequent encounter for closed fracture with delayed healing (principal)
CPT/HCPCS: 29515; 96372; 99283; 99284; J1885

== ENCOUNTER → 2023-06-02 15:52 | Outpatient (CLI) | payer OTHER, MEDICAID, SELFPAY ==
[2023-06-02 17:35] LABS: Add Manual Diff / Slide Review NO; Basophils Absolute Auto 0 /uL (0-100); Basophils Percent Auto 0.4 % (0-2); Eosinophils Absolute Auto 200 /uL (0-450); Eosinophils Percent Auto 2.3 % (2-4); Hematocrit 40.1 % (41-53); Hemoglobin 13.9 g/dL (13.5-17.5); Lymphocytes Absolute Auto 3100 /uL (1100-4500); Lymphocytes Percent Auto 41.9 % (25-40); Mean Corpuscular HGB Conc 34.6 % (30-36); Mean Corpuscular Hemoglobin 30.7 PG (26-34); Mean Corpuscular Volume 88.9 fL (80-100); Monocytes Absolute Auto 500 /uL (0-900); Monocytes Percent Auto 6.9 % (3-14); Neutrophils Absolute Auto 3600 /uL (1500-7000); Neutrophils Percent Auto 48.5 % (50-75); Platelet Count 219 X10^3/uL (150-400); Red Blood Cell Count 4.51 X10^6/uL (4.5-5.9); Red Cell Distribution Width 12.5 % (11.6-14.8); White Blood Cell Count 7.3 X10^3/uL (4.5-11.0)
[2023-06-02 17:46] LABS: Alanine Aminotransferase 21 IU/L (<50); Albumin 4.1 g/dL (3.5-5.0); Albumin Globulin Ratio 1.4 (1.0-2.8); Alkaline Phosphatase 51 U/L (38-126); Aspartate Aminotransferase 25 IU/L (17-59); BUN Creatinine Ratio 22.5 (6-22); Bilirubin Total 0.6 mg/dL (0.2-1.3); Blood Urea Nitrogen 16 mg/dL (9-20); Calcium 9.4 mg/dL (8.4-10.2); Carbon Dioxide 30 mmol/L (22-32); Chloride 103 mmol/L (98-107); Estimated Glomerular Filt Rate > 60 mL/min (>60); Glucose 72 mg/dL (70-100); HEMOLYSIS < 15 (0-50); Potassium 3.7 mmol/L (3.4-5.1); Sodium 139 mmol/L (137-145); Total Protein 7.1 g/dL (6.3-8.2)
[2023-06-02 18:10] LABS: Hemoglobin A1C% w Est Avg Glu 5.3 % (4.0-6.0)
== END ==
LOC: LAB 15:53
PROVIDERS: PCP Family Medicine; Referring Provider Family Medicine; Visit Provider Family Medicine
DX: R73.01 Impaired fasting glucose (principal); D64.9 Anemia, unspecified
CPT/HCPCS: 36415; 80053; 83036; 85025

== ENCOUNTER → 2025-02-10 09:19 | Outpatient (CLI) | payer OTHER, SELFPAY ==
[2025-02-10 10:37] LABS: Alanine Aminotransferase 34 IU/L (<50); Albumin 4.6 g/dL (3.5-5.0); Albumin Globulin Ratio 1.6 (1.0-2.8); Alkaline Phosphatase 65 U/L (38-126); Blood Urea Nitrogen 16 mg/dL (9-20); Calcium 9.7 mg/dL (8.4-10.2); Carbon Dioxide 26 mmol/L (22-32); Chloride 101 mmol/L (98-107); Cholesterol 198 mg/dL (140-199); Estimated Glomerular Filt Rate > 60 mL/min (>60); Globulin 2.9 g/dL (1.7-4.1); Glucose 104 mg/dL (70-99); HDL Cholesterol 51 mg/dL (40-60); HEMOLYSIS < 15 (0-50); Potassium 4.4 mmol/L (3.4-5.1); Sodium 138 mmol/L (137-145); Total Protein 7.5 g/dL (6.3-8.2); Triglycerides 203 mg/dL (35-150)
[2025-02-10 11:04] LABS: TSH w/ Reflex to FT4 1.40 uIU/mL (0.47-4.68)
[2025-02-10 11:27] LABS: HIV 1 & 2 Ab/Ag 4th Gen Combo NEGATIVE (NEGATIVE); Hep C Virus Ab w/Reflex Quant NEGATIVE s/c (NEGATIVE)
== END ==
PROVIDERS: PCP Family Medicine; Referring Provider Family Medicine; Visit Provider Family Medicine
DX: Z00.00 Encounter for general adult medical examination without abnormal findings (principal); E05.90 Thyrotoxicosis, unspecified without thyrotoxic crisis or storm; Z12.5 Encounter for screening for malignant neoplasm of prostate; Z11.4 Encounter for screening for human immunodeficiency virus [HIV]; Z11.59 Encounter for screening for other viral diseases
CPT/HCPCS: 36415; 80053; 80061; 84443; 86803; 87389; G0103